=== PATIENT | female | born 1965 | race Caucasian/White ===

== ENCOUNTER → 2016-03-19 | Outpatient (CLI) | payer BC ==
[~2016-03-19] MED LIST: CALCIUM CARBON600 MG PO; CHEWABLE ASPIRI81 MG PO; FLEXERIL10 MG PO; IBU-8800 MG PO; IRON TABLETS325 MG PO; LASIX20 MG; LEVEMIR100 U/M1 SC; LISINOPRIL2.5 MG NG; LORTAB 5/500 501 TAB PO; NOVOLOG FLEX100 U/ML SC; OMEPRAZOLE40 MG; SIMVASTATIN40 MG; TRILIPIX45 M1; VITAMIN C500 M1 PO
[2016-03-19 08:45] LABS: HEMOGLOBIN 12.2 g/dL (12.2-16.2); LYMPH # 1.8 K/mm3 (0.7-4.5); LYMPH % 30.1 % (10-50.0)
[2016-03-19 09:50] LABS: BUN 19 mg/dL (7-18)
[2016-03-19 09:53] LABS: GFR (ESTIMATED) 43 ML/MIN (59-)
[2016-03-20 07:36] LABS: Creatinine, Urine 136.7 mg/dL (Not Estab.); Microalbumin, Urine 19.8 ug/mL (Not Estab.)
== END ==
LOC: LAB 08:33
PROVIDERS: Nurse Practitioner Family
DX: E10.9 Type 1 diabetes mellitus without complications (principal); E78.2 Mixed hyperlipidemia; N18.3 Chronic kidney disease, stage 3 (moderate); K27.9 Peptic ulcer, site unspecified, unspecified as acute or chronic, without hemorrhage or perforation

== ENCOUNTER → 2016-07-11 | Outpatient (CLI) | payer BC ==
[2016-07-11 09:05] LABS: HEMOGLOBIN 12.5 g/dL (12.2-16.2); LYMPH # 1.9 K/mm3 (0.7-4.5); LYMPH % 27.4 % (10-50.0)
[2016-07-11 11:19] LABS: BUN 19 mg/dL (7-18)
[2016-07-11 11:24] LABS: GFR (ESTIMATED) 48 ML/MIN (59-)
[2016-07-12 09:37] LABS: Microalbumin, Urine 6.9 ug/mL (Not Estab.)
== END ==
LOC: LAB 08:55
PROVIDERS: Nurse Practitioner Family
DX: N18.3 Chronic kidney disease, stage 3 (moderate) (principal); E10.9 Type 1 diabetes mellitus without complications; E78.2 Mixed hyperlipidemia

== ENCOUNTER 2016-09-26 06:57 | Day surgery (SDC) | payer BC ==
--- NOTE | 2016-09-26 08:25 | Operative Note ---
Colonoscopy (Go) Procedure date: 09/26/16 Date of : 67 Procedure:Colonoscopy Colonoscopy with cold snare polypectomy and cold biopsy Indications: Mrs. Nunez is a 51-year-old female who is here for screening colonoscopy. She did have a colonoscopy which was normal in 2006 when she was undergoing evaluation for anemia and blood loss. The patient reports no abdominal pain, weight loss, change in her bowel habits or rectal bleeding. She reports no family history of colon cancer. Performing Provider: Ritika Stiles MD Referrring Provider: Chan Briggs M.D. Sedation: Fentanyl 100 mg IV/Versed 7 mg IV Procedure: Prior to the procedure, a history and physical exam was performed, and patient medications and allergies were reviewed. The risks and benefits of the procedure and the sedation options and risks were discussed with the patient. All questions were answered and informed consent was obtained. Patient identification and proposed procedure were verified by the physician and the nurse. The patient was placed in a left lateral decubitus position. Throughout the procedure, the patient's blood pressure, pulse, and oxygen saturations were monitored continuously. Findings: On digital rectal examination there was normal rectal tone. There were no external hemorrhoids. The colonoscope was introduced through the anal canal to the rectum and advanced to the cecum. The ileocecal valve was identified. The scope was advanced a short distance into the ileum which appeared grossly normal. The scope was then withdrawn into the colon. 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 There were 4 colon polyps identified in the cecum 2, ascending 1 and descending 1. These ranged in size from 5-7 mm and were all removed via cold snare polypectomy. There were very mildly scattered diverticuli throughout the descending and sigmoid colon (LEFT colon). The rectum itself was normal. Upon retroflexion within the rectum there were very small grade 1 internal hemorrhoids. Impressions: 1. Diminutive colonic polyps 4 2. Inverted appendix status post biopsies 3. Mild left-sided diverticulosis Recommendations: I will follow-up the polyp histology and recommend repeat screening/surveillance colonoscopy again in 5 years if the polyps are adenomatous. Complications: None EBL (ml): 0 at 0831
[2016-09-26 14:33] VITALS: BP 157/64
== END 2016-09-26 09:00 | disposition home or self-care (01) ==
LOC: SDC 06:57
PROVIDERS: Internal Medicine Gastroenterology
PROC: 0DBM8ZX Excision of Descending Colon, Via Natural or Artificial Opening Endoscopic, Diagnostic (ICD-10-PCS; 2016-09-26)
PROC: 0DBK8ZX Excision of Ascending Colon, Via Natural or Artificial Opening Endoscopic, Diagnostic (ICD-10-PCS; 2016-09-26)
PROC: 0DBE8ZX Excision of Large Intestine, Via Natural or Artificial Opening Endoscopic, Diagnostic (ICD-10-PCS; 2016-09-26)
PROC: 0DBH8ZX Excision of Cecum, Via Natural or Artificial Opening Endoscopic, Diagnostic (ICD-10-PCS; principal; 2016-09-26 08:00)
DX: Z12.11 Encounter for screening for malignant neoplasm of colon (principal); K63.5 Polyp of colon; K57.30 Diverticulosis of large intestine without perforation or abscess without bleeding